=== PATIENT | female | born 1970 | race Two or more races ===

== ENCOUNTER → 2024-07-12 | Day surgery (SDC) | payer BC ==
[~2024-07-12] VITALS: Ht 167.6 cm; Wt 124.7 kg
[~2024-07-12] MED LIST: DexAMETHasone SOD PHOS 10MG/1ML VIAL INJ ONE; HYDROmorphone HCL 2 MG/ML VL/or syr IV PRN; MEPERIDINE HCL (25 MG/ML) 1ML VIAL ONE; METOCLOPRAMIDE HCL 5MG/ml INJ 2ml VIAL ONE; MIDAZOLAM HCL 2MG/2ML 2ml VIAL (1mg/ml) IV PRN; MIDAZOLAM HCL 2MG/2ML 2ml VIAL (1mg/ml) ONE; MORPHINE SULFATE 4 MG/ML SYR/VIAL IV PRN; ONDANSETRON HCL 4 MG/2 ML VIAL IV ONE; PROPOFOL 10 MG/ML 20 ML IV ONE; ceFAZolin 2 GM/D5W100ml 100 ML IV ONE; ePHEDrine SULFATE 50 MG/ML AMP IV PRN; fentaNYL CITRATE 100 MCG/2 ML VL ONE; hydrALAZINE HCL 20 MG/ML VL IV PRN
[2024-07-12] MEDS: BUPIVACAINE 0.25% INJ 50ML VIAL ONE (07:36)
[2024-07-12] MEDS: LIDOCAINE W/ EPINEPHRINE 1% 20ML VIAL ONE (07:37)
[2024-07-12 07:56] VITALS: RESP 15; TEMP 96.8; O2SAT 98
[2024-07-12 08:35] VITALS: BP 142/80; PULSE 70; RESP 15; O2SAT 95
--- NOTE | 2024-07-12 09:02 | DVH ---
C-ARM FLUOROSCOPY: PROCEDURE: Right wrist hardware removal FLUOROSCOPY TIME: 1.4 seconds DAP: 0.04 mgy FINDINGS: Spot intraoperative C arm radiographs demonstrating right wrist hardware removal. IMPRESSION: Please refer to surgical report for detailed findings.
--- NOTE | 2024-07-23 06:25 | DVHOP2 ---
Operative Report - 2 Report Details Date: 07/19/24 Preop Diagnosis: Painful right wrist hardware Postop Diagnosis: Painful right wrist hardware Surgeon: Flakito Mast MD Anesthesiologist: Esthela WHITLOCK Anesthesia: General Consent: The patient was informed of the risks and benefits of the procedure. These include but are not limited to complications of anesthesia, postoperative infection, incomplete relief of symptoms, recurrence of symptoms, damage to blood vessels, nerves and tendons, deep venous thrombosis, pulmonary embolism and possible need for repeat surgery in the future. Name of Procedure Performed 1. Right wrist hardware removal, flexor tendon debridement, intraop fluoro Procedure Details Procedure Details: CLINICAL SUMMARY: Risks/benefits/options/alternatives were discussed at length with patient and his family. Nonoperative versus operative management was presented to her. Risks include but not exclusive to bleeding, infection, nerve injury, tendon or ligament damage, hardware failure, nonunion, malunion, need for further surgery, amputation, DVT, and . She understood these risks and wished to proceed with surgery. OPERATION: The patient was brought from the healthcare advisory services manager unit and placed on the operating table in a supine position and administered general anesthetic. Tourniquet was placed around the left upper extremity. Once adequate anesthesia had been obtained, the left upper extremity was prepped and draped in the usual sterile manner. A time out was performed. The upper extremity was then elevated and exsanguinated using an Esmarch dressing. The tourniquet was elevated to 250 mmHg. At this time an approximately 8 cm longitudinal incision was then made overlying the right flexor carpi radialis tendon from the flexion crease to the wrist proximally. This was carried down to the flexor carpi radialis, which was then retracted ulnarly. The floor of the flexor carpi radialis was then incised exposing the flexor pronator muscles. The flexor pollicis longus was retracted ulnarly and the pronator quadratus was longitudinally incised 1 cm from its origin. It was then elevated off of the plate which was easily visualized. All screws removed followed by the plate. Flexor tendon debrided. Incision was then copiously irrigated with normal saline. Homeostasis was main tained with electrocautery. The pronator quadratus was closed with 3-0 Vicryl and the above skin incisions were closed proximally with 3-0 nylon. A large bulky dressing was then applied. The tourniquet was let down. The fingers were immediately pink. The patient was awakened and taken to the recovery room in good condition. There were no operative complications. The patient tolerated the procedure well. Condition Good Disposition Home FLAKITO MAST MD Jul 23, 2024 06:25
== END | disposition home or self-care (01) ==
LOC: SUR 06:20
PROVIDERS: ATTEND Orthopaedic Surgery Adult Reconstructive Orthopaedic Surgery
DX: T84.84XA Pain due to internal orthopedic prosthetic devices, implants and grafts, initial encounter (principal); Y83.8 Other surgical procedures as the cause of abnormal reaction of the patient, or of later complication, without mention of misadventure at the time of the procedure; E66.01 Morbid (severe) obesity due to excess calories; Z68.42 Body mass index [BMI] 45.0-49.9, adult; Z88.2 Allergy status to sulfonamides
CPT/HCPCS: 20680; 73100; 76000; J1100; J2175; J2250; J2704; J2765; J3010; J3490